=== PATIENT | female | born 1975 | race Caucasian/White ===

== ENCOUNTER 2018-05-12 22:03 | Emergency (ER) | payer OTHER ==
[2018-05-12 22:21] VITALS: BP 123/76; PULSE 86; TEMP 98.3; BMI 31.1
--- NOTE | 2018-05-12 23:17 | PDOC ---
History of Present Illness - General Chief Complaint: RX Refill Stated Complaint: HYPERTENSION/NAUSEA Time Seen by Provider: 05/12/18 22:27 History Source: Patient Exam Limitations: No Limitations - History of Present Illness Initial Comments: 05/12/18 23:24 Best Contact:[phone] PCP: Kaylin name Pmhx: HTN Pshx: N/A Allergies: NKDA FH:0 Social Hx: Cigarettes/ 0 Alcohol/ 0 Drugs/0 LMP: 04/20/2018 43-year-old female presents to the emergency department without any medical complaints. Patient states she ran out of her hypertensive medication 10 days ago. Patient denies any headache, dizziness, lightheadedness, nausea/vomiting, fever/chills, facial pains, neck pain/stiffness, back pain, chest pain, shortness of breath, abdominal pains, flank pains, urinary symptoms. Patient states she is feeling fine without any medical complaints. Patient has an appointment with her PMD 10 days from now. Past History - Travel Traveled outside of the country in the last 30 days: No Close contact w/someone who was outside of country & ill: No - Past Medical History Allergies/Adverse Reactions: Allergies Allergy/AdvReac Type Severity Reaction Status Date / Time No Known Allergies Allergy Verified 02/09/16 10:07 Home Medications: Ambulatory Orders Felodipine [Felodipine ER] 5 mg PO DAILY 02/09/16 Felodipine [Felodipine ER] 5 mg PO DAILY #30 tab.er.24h 02/09/16 Felodipine [Felodipine ER] 5 mg PO DAILY #10 tab.er.24h 05/12/18 COPD: No HTN: Yes - Suicide/Smoking/Psychosocial Hx Smoking History: Never smoked Have you smoked in the past 12 months: No Information on smoking cessation initiated: No Hx Alcohol Use: No Drug/Substance Use Hx: No Substance Use Type: None Review of Systems - Review of Systems Able to Perform ROS?: Yes Comments:: 05/12/18 23:33 CONSTITUTIONAL: Absent: fever, chills, diaphoresis, generalized weakness, malaise, loss of appetite HEENT: Absent: rhinorrhea, nasal congestion, throat pain, throat swelling, difficulty swallowing, mouth swelling, ear pain, eye pain, visual Changes CARDIOVASCULAR: Absent: chest pain, loss of consciousness, palpitations, irregular heart rate, peripheral edema RESPIRATORY: Absent: cough, shortness of breath, dyspnea with exertion, orthopnea, wheezing, stridor, hemoptysis GASTROINTESTINAL: Absent: abdominal pain, abdominal distension, nausea, vomiting, diarrhea, constipation, melena, hematochezia GENITOURINARY: Absent: dysuria, frequency, urgency, hesitancy, hematuria, flank pain, genital pain MUSCULOSKELETAL: Absent: myalgia, arthralgia, joint swelling SKIN: Absent: rash, itching, pallor HEMATOLOGIC/IMMUNOLOGIC: Absent: easy bleeding, easy bruising, lymphadenopathy, frequent infections ENDOCRINE: Absent: unexplained weight gain, unexplained weight loss, heat intolerance, cold intolerance NEUROLOGIC: Absent: headache, focal weakness or paresthesias, dizziness, unsteady gait, seizure, mental status changes, bladder or bowel incontinence PSYCHIATRIC: Absent: anxiety, depression, suicidal or homicidal ideation, hallucinations. Is the patient limited Hungarian proficient: No *Physical Exam - Vital Signs Last Vital Signs Temp Pulse Resp BP Pulse Ox 98.3 F 86 18 123/76 100 05/12/18 22:15 05/12/18 22:15 05/12/18 22:15 05/12/18 22:15 05/12/18 22:15 - Physical Exam Comments: 05/12/18 23:33 GENERAL: Well developed, well nourished. Awake and alert. No acute distress. HEENT: Normocephalic, atraumatic. PERRLA, EOMI. No conjunctival pallor. Sclera are non- icteric. Moist mucous membranes. Oropharynx is clear. NECK: Supple. Full ROM. No JVD. Carotid pulses 2+ and symmetric, without bruits. No thyromegaly. No lymphadenopathy. CARDIOVASCULAR: Regular rate and rhythm. No murmurs, rubs, or gallops. Distal pulses are 2+ and symmetric. PULMONARY: No evidence of respiratory distress. Lungs clear to auscultation bilaterally. No wheezing, rales or rhonchi. ABDOMINAL: Soft. Non-tender. Non-distended. No rebound or guarding. No organomegaly. Normoactive bowel sounds. MUSCULOSKELETAL Normal range of motion at all joints. No bony deformities or tenderness. No CVA tenderness. EXTREMITIES: No cyanosis. No clubbing. No edema. No calf tenderness. SKIN: Warm and dry. Normal capillary refill. No rashes. No jaundice. NEUROLOGICAL: Alert, awake, appropriate. Cranial nerves 2-12 intact. No deficits to light touch and temperature in face, upper extremities and lower extremities. No motor deficits in the in face, upper extremities and lower extremities. Normoreflexic in the upper and lower extremities. Normal speech. Toes are down- going bilaterally. Gait is normal without ataxia. PSYCHIATRIC: Cooperative. Good eye contact. Appropriate mood and affect. Moderate Sedation - Procedure Monitoring Vital Signs: Procedure Monitoring Vital Signs Temperature 98.3 F 05/12/18 22:15 Pulse Rate 86 05/12/18 22:15 Respiratory Rate 18 05/12/18 22:15 Blood Pressure 123/76 05/12/18 22:15 O2 Sat by Pulse Oximetry (%) 100 05/12/18 22:15 *DC/Admit/Observation/Transfer Diagnosis at time of Disposition: Medication refill - Discharge Dispostion Disposition: HOME Condition at time of disposition: Stable Decision to Admit order: No - Prescriptions Prescriptions: Felodipine [Felodipine ER] 5 mg PO DAILY #10 tab.er.24h - Referrals Referrals: Ronnell Perez MD [Staff Physician] - - Patient Instructions Printed Discharge Instructions: DI for High Blood Pressure Additional Instructions: Asegrese de hacer un seguimiento con duarte mdico con respecto a la recarga de medicamentos. Regrese a urgencias para parker de kvng, mareos, visin borrosa, dolor torcico, dificultad para respirar o cualquier inquietud. Be sure to follow up with your physician regarding medication refill. Return to the ER for headaches, dizziness, blurry vision, chest pain, shortness of breath or any concerns. Print Language: HAITIAN - Post Discharge Activity
== END 2018-05-12 23:35 | disposition home or self-care (01) ==
LOC: JERFT 22:03
DX: I10 Essential (primary) hypertension (principal)
CPT/HCPCS: 99281-25

== ENCOUNTER 2018-11-25 16:55 | Emergency (ER) | payer OTHER ==
[2018-11-25 17:01] VITALS: BP 138/86; PULSE 114; TEMP 98.3; BMI 28.4
[2018-11-25] MEDS ORDERED: SULFAMETHOXAZOLE/TRIMETHOPRIM 800MG/160MG D.S. TABLET PO ONE (17:25)
--- NOTE | 2018-11-25 17:25 | PDOC ---
History of Present Illness - General Chief Complaint: Abscess Boil Stated Complaint: LUMP TO RT BREAST Time Seen by Provider: 11/25/18 17:02 - History of Present Illness Initial Comments: 11/25/18 17:23 CHIEF COMPLAINT: redness to breast HISTORY OF PRESENT ILLNESS: 43 yo F with hx of HTN (prescribed medication in [place] but is no longer taking it "because it made me feel bad") presents to fast track with redness and warmth to her breast x 2 days. She states that she felt "a little ball" initally and then today she felt that the area around her breast was bothering her and when she looked at it it was red. She denies any fever, chills, nausea, vomiting, or diarrhea. No recent travel or sick contacts. PAST MEDICAL HISTORY: Denies past medical history FAMILY HISTORY: Denies SOCIAL HISTORY: Denies tobacco, alcohol, illicit drug use. SURGICAL HISTORY: Denies ALLERGIES: No known drug allergies REVIEW OF SYSTEMS General/Constitutional: Denies fever or chills. Denies weakness, weight change. HEENT: Denies change in vision. Denies ear pain or discharge. Denies sore throat. Cardiovascular: Denies chest pain or shortness of breath. Respiratory: Denies cough, wheezing, or hemoptysis. Gastrointestinal: Denies nausea, vomiting, diarrhea or constipation. Denies rectal bleeding. Genitourinary: Denies dysuria, frequency, or change in urination. Musculoskeletal: Denies joint or muscle swelling or pain. Denies neck or back pain. Skin and breasts: Redness and warmth to R breast since yesterday. Neurologic: Denies headache, vertigo, loss of consciousness, or loss of sensation. Psychiatric: Denies depression or anxiety. PHYSICAL EXAM General Appearance: Well-appearing, appropriately dressed. No apparent distress , no intoxication. HEENT: EOMI, PERRLA, normal ENT inspection, normal voice, TMs normal, pharynx normal. No conjunctival pallor. No photophobia, scleral icterus. Neck: Supple. Trachea midline. No tenderness, rigidity, carotid bruit, stridor , lymphadenopathy, or thyromegaly. Respiratory/Chest: Lungs CTAB. No shortness of breath, chest tenderness, respiratory distress, accessory muscle use. No crackles, rales, rhonchi, stridor , wheezing, dullness Cardiovascular: RRR. S1, S2. No JVD, murmur, bradycardia, tachycardia. Vascular Pulses: Dorsalis-Pedis (R): 2+, Dorsalis-Pedis (L): 2+ Gastrointestinal/Abdominal: Normal bowel sounds. Abdomen soft, non-distended. No tenderness or rebound tenderness. No organomegaly, pulsatile mass, guarding , hernia, hepatomegaly, splenomegaly. Lymphatic: No adenopathy, tenderness. Musculoskeletal/Extremities: Normal inspection. FROM of all extremities, normal capillary refill. Pelvis Stable. No CVA tenderness. No tenderness to extremities, pedal edema, swelling, erythema or deformity. Integumentary: Area of erythema, tenderness, and mild induration to R inferior breast approximately 3x4in in size. Otherwise appropriate color, dry, warm. No cyanosis, jaundice or rash Neurologic: counter sales representative II-XII intact. Fully oriented, alert. Appropriate mood/affect. Motor strength 5/5. No appreciable EOM palsy, facial droop or sensory deficit. 11/25/18 17:25 Past History - Past Medical History Allergies/Adverse Reactions: Allergies Allergy/AdvReac Type Severity Reaction Status Date / Time No Known Allergies Allergy Verified 11/25/18 17:01 Home Medications: Ambulatory Orders Felodipine [Felodipine ER] 5 mg PO DAILY 02/09/16 Felodipine [Felodipine ER] 5 mg PO DAILY #30 tab.er.24h 02/09/16 Felodipine [Felodipine ER] 5 mg PO DAILY #10 tab.er.24h 05/12/18 Sulfamethoxazole/Trimethoprim [Bactrim Ds -] 1 tab PO BID #14 tablet 11/25/18 COPD: No HTN: Yes - Suicide/Smoking/Psychosocial Hx Smoking History: Never smoked Have you smoked in the past 12 months: No Hx Alcohol Use: No Drug/Substance Use Hx: No Substance Use Type: None *Physical Exam - Vital Signs Last Vital Signs Temp Pulse Resp BP Pulse Ox 98.3 F 114 H 20 138/86 99 11/25/18 16:58 11/25/18 16:58 11/25/18 16:58 11/25/18 16:58 11/25/18 16:58 Medical Decision Making - Medical Decision Making 11/25/18 17:30 43 yo F with hx of HTN (prescribed medication in [place] but is no longer taking it "because it made me feel bad") presents to fast track with redness and warmth to her breast x 2 days Clinical presentation consistent with developing cellulitis of R breast, no abscess appreciated. Area of erythema and mild induration circumscribed with surgical marker. -Bactrim rx sent to pharm Advised patient to take medication as prescribed. Advised patient of signs and symptoms for return to ED. Patient verbalized understanding and agrees to plan. *DC/Admit/Observation/Transfer Diagnosis at time of Disposition: Cellulitis of right breast - Discharge Dispostion Disposition: HOME Condition at time of disposition: Stable Decision to Admit order: No - Prescriptions Prescriptions: Sulfamethoxazole/Trimethoprim [Bactrim Ds -] 1 tab PO BID #14 tablet - Referrals Referrals: Lucas Perez MD [Staff Physician] - - Patient Instructions Printed Discharge Instructions: DI for Cellulitis -- Adult Print Language: BULGARIAN - Post Discharge Activity
[2018-11-25] MEDS ORDERED: SULFAMETHOXAZOLE/TRIMETHOPRIM 800MG/160MG D.S. TABLET ONE (17:37)
== END 2018-11-25 17:46 | disposition home or self-care (01) ==
LOC: JERFT 16:55
DX: N61.0 Mastitis without abscess (principal)
CPT/HCPCS: 99281-25

== ENCOUNTER 2020-12-03 20:51 | Emergency (ER) | payer OTHER ==
[2020-12-03 21:16] VITALS: BP 138/91; PULSE 110; TEMP 99.1; BMI 45.3
[2020-12-03] MEDS ORDERED: IBUPROFEN 600 MG TABLET (FP) PO ONE ×2 (22:38→22:48)
[2020-12-03] MEDS ORDERED: TETRACAINE 0.5% HCL 0.6ML DROPPER.BOTTLE OD ONE (22:42)
[2020-12-03] MEDS ORDERED: FLUORESCEIN NA 1 EA STRIP OS ONE (22:42)
[2020-12-03] MEDS ORDERED: TETRACAINE 0.5% OPHTH SOLN 2 ML BOTTLE ONE (22:48)
[2020-12-03] MEDS ORDERED: FLUORESCEIN NA 1 EA STRIP ONE (22:48)
[2020-12-03] MEDS ORDERED: ERYTHROMYCIN 0.5% OPHTHALMIC OINTMENT 3.5 GM TUBE OS ONE (23:11)
== END 2020-12-03 23:20 | disposition home or self-care (01) ==
LOC: JERFT 20:51
DX: H21.02 Hyphema, left eye (principal); W21.00XA Struck by hit or thrown ball, unspecified type, initial encounter
CPT/HCPCS: 99283-25